=== PATIENT | female | born 1975 | race Caucasian/White ===

== ENCOUNTER 2016-10-10 23:32 | Emergency (ER) | payer OTHER ==
[~2016-10-10 23:32] MED LIST: AUGMENTIN PO; BROMFED DM COU118 ML PO; EXCEDRIN EXTRA1 TAB; FLEXERIL PO; IBUPROFEN800 MG PO; NAPROSYN-EC500 MG PO; NAPROXEN PO; NORCO1 TAB 10/3 PO; PEPCID AC20 M2 PO; PRILOSEC20 MG DOB; VOLTAREN75 MG PO; ZITHROMAX PO
[2016-10-11] MEDS ORDERED: NO MEDICATIONS (00:12)
== END 2016-10-11 01:20 | disposition home or self-care (01) ==
LOC: SED 23:32
DX: J02.0 Streptococcal pharyngitis (principal); F17.200 Nicotine dependence, unspecified, uncomplicated
CPT/HCPCS: 87880; 96372; 99283; J0561